=== PATIENT | female | born 1970 | race Caucasian/White ===

== ENCOUNTER → 2016-07-01 | Outpatient (CLI) | payer OTHER ==
--- NOTE | 2016-07-01 14:23 | DI ---
XR C-SPINE COMPLETE MIN 4VW,07/01/2016 12:20 PM: Clinical History: Posterior cervical fusion with extension to the first thoracic vertebral body. Previous Exam: March 16, 2016 Findings: AP, lateral and oblique views of the cervical spine are obtained as well as flexion and extension vie ws, and demonstrate stable postsurgical changes consistent with anterior fusion of C4-C6. Interbody f usion is also noted with stable, adequate ossification. There is also posterior fusion rods noted which have remained stable. The most inferior fusion rods e xtend to the anterior margin of the first thoracic vertebral body and extend into the C7/T1 intervert ebral disc space. There is loss of intervertebral disc height at the C3/4 level with endplate osteophytes. There are is wide patency of the neural foramina on the left despite a few small uncovertebral joint osteophytes. The right neural foramina are not well evaluated on this exam. Flexion and extension views demonstrate no evidence of instability. Impression: No significant change from the prior exam.
== END ==
LOC: RAD 12:13
PROVIDERS: ATTEND Neurological Surgery
DX: Z48.811 Encounter for surgical aftercare following surgery on the nervous system (principal); Z98.1 Arthrodesis status
CPT/HCPCS: 72050

== ENCOUNTER → 2016-11-16 | Outpatient (CLI) | payer OTHER ==
--- NOTE | 2016-11-16 12:48 | DI ---
History: Cervical disc disorder with radiculopathy. Comparison: March 16, 2016 Findings: Anterior plate and screws extend from the level of C4-C6. There are intervertebral bone blocks were c ages at the levels of C45 and C5-6. The anterior plate and screws are well seated, and alignment is g ood. There is posterior fixation extending from the level of C5 to the level of T1. Hardware is well seate d. Alignment is good. There is intervertebral disc space narrowing at the level of C3-4 there is no prevertebral soft tissu e swelling No acute injury is demonstrated. Impression Anterior and posterior cervical hardware is well seated, and cervical alignment is good. No changes compared with March 16, 2016
== END ==
LOC: RAD 08:57
PROVIDERS: ATTEND Neurological Surgery
DX: M50.13 Cervical disc disorder with radiculopathy, cervicothoracic region (principal)
CPT/HCPCS: 72050